=== PATIENT | male | born 1970 | race Caucasian/White ===

== ENCOUNTER → 2020-02-18 | Day surgery (SDC) | payer BC ==
[~2020-02-18] MED LIST: B&O 60MG R/S 60 MG SUPP PR ONE; CEFTRIAXONE SOD 1 GM/NS 50 ML 50 ML IV ONE; DEXAMETHASONE SOD PHOS INJ 4 MG/ML VIAL ONE; FENTANYL CITRATE/PF 100MCG/2 ML INJ ONE; FLOMAX0.4 MG PO; GLYCOPYRROLATE INJ 0.2 MG/ML VIAL ONE; IOPAMIDOL 300MG/ML 50ML INFUS..BTL IV ONE; LIDOCAINE HCL 2% LOCAL INJ 5 ML SDV VIAL INJ ONE; MIDAZOLAM HCL 2 MG/2 ML VIAL ONE; NEOSTIGMINE 1 MG/ML 10ML VIAL ONE; ONDANSETRON HCL INJ 2MG/ML 2ML 2 MG/ML VIAL ONE; PROPOFOL IV EMULSION 10 MG/ML 20 ML VIAL ONE; ROCURONIUM BROMIDE 10 MG/ML 5ML VIAL IV ONE; SEVOFLURANE INHAL SOLN 250 ML PEN BTL ONE
[2020-02-18 08:50] VITALS: BP 132/85
--- NOTE | 2020-02-20 18:16 | Operative Report ---
DATE OF PROCEDURE: 02/18/2020 SURGEON: Magno Perez MD PREOPERATIVE DIAGNOSES: 1. Right ureterolithiasis. 2. Right hydronephrosis due to stone. 3. Hematuria. 4. Urinary tract infections. POSTOPERATIVE DIAGNOSES: 1. Right ureterolithiasis. 2. Right hydronephrosis due to stone. 3. Hematuria. 4. Urinary tract infections. OPERATIONS PERFORMED: 1. Cystourethroscopy with bilateral ureteral catheterization and retrograde ureteropyelography (separate performed for the hematuria and urinary tract infections). 2. Interpretation of retrograde ureteropyelography. 3. Supervision of fluoroscopy, no radiologist present. 4. Right ureteroscopy with stone manipulation and extraction (separate procedure performed for the right ureterolithiasis). 5. Radiological services with supervision and interpretation of ureteroscopy. 6. Cystourethroscopy with insertion of right indwelling ureteral stent (separate procedure performed to relieve the hydronephrosis). ANESTHESIA: General. COMPLICATIONS: None. CLINICAL SUMMARY: Haris Medel is a 49-year-old man with the above preoperative diagnoses. He was brought for the above procedures. He is aware of the risks of bleeding, infection, injury to adjacent structures, need for additional procedures, and elected to proceed. These procedures were done during the COVID-19 emergency due to the fact that the patient has an obstructed right kidney, waiting a couple of months to do this procedure could result in damage to the kidney and therefore, we are doing this procedure to save organ function. OPERATIVE PROCEDURE IN DETAIL: Informed consent was verified. Haris Medel was properly identified, taken to the operating room, and placed on the cystoscopy table in supine position. Anesthesia was uneventfully begun. The patient was then carefully gently repositioned in the dorsal lithotomy position with all pressure points well padded. His genitalia were prepared and draped in usual sterile fashion. The cystoscope sheath with a visual obturator in place was atraumatically inserted into the patient's urethra, it was guided down the unremarkable distal urethra through the normal sphincteric region through the prostate bed, which was significant for very minimal BPH. We entered the patient's bladder. Panendoscopy revealed no suspicious mucosal lesions, no tumors, no stones, no diverticula. Left ureteral orifice was unremarkable. The right ureteral orifice had erythema around it, consistent with an irritative process. A ureteral catheter was used to cannulate the left ureter and retrograde pyelograms were performed, was inserted the right ureter and retrograde ureteropyelograms were performed. A guidewire was then placed into the right ureter and guided to the level of the patient's kidney. The rigid ureteroscope was inserted alongside the guidewire up into the right ureter. We identified the stone. The stone had lots of sharp edges around it and was lodged. We gently dislodged it. We then utilized a basket to atraumatically extracted them with cystoscopic fluoroscopic. With cystoscopic fluoroscopic guidance, the right-sided indwelling ureteral stent was then placed, it was coiled in the patient's kidney as well as the patient's bladder. The retaining suture was left long, so that it may be urinated out into the urethra and allowed for easy retrieval with cystoscopy in the office. Interpretation of retrograde ureteropyelography. Contrast was instilled in retrograde fashion bilaterally. The left side was unremarkable. There were no tumors, no stones, no diverticula. Unobstructed drainage was observed fluoroscopically. Right hand side exhibited hydroureteronephrosis down the level of the patient's stone. The stent was in good position, coiled the patient's kidney as well the patient's bladder at the end of the case. The patient's bladder was drained. Cystoscope was withdrawn. Belladonna and opium suppository were placed, revealing a 25 g prostate, smooth, nonfluctuant without any nodules. The patient was then uneventfully reversed from anesthesia and taken to recovery room in stable condition. There were no complications to the procedure. He tolerated the procedure well. PLANS: Plans will be to return the patient to the office in 3 to 4 weeks to performed cystoscopy and removal of the stents. Magno Perez MD [facility]/MOD[facility] /[id number]
== END | disposition home or self-care (01) ==
LOC: OR 05:24
PROVIDERS: ATTEND Urology
DX: N13.2 Hydronephrosis with renal and ureteral calculous obstruction (principal); N39.0 Urinary tract infection, site not specified; N40.0 Benign prostatic hyperplasia without lower urinary tract symptoms; G47.33 Obstructive sleep apnea (adult) (pediatric); M19.90 Unspecified osteoarthritis, unspecified site; R00.1 Bradycardia, unspecified; Z68.33 Body mass index [BMI] 33.0-33.9, adult
CPT/HCPCS: 52332; 52351; 74420; 88300; 93005; C1758; C1769; C2617; J0696; J1100; J2001; J2250; J2405; J2704; J2710; J3010; Q9967

== ENCOUNTER → 2024-06-11 | Day surgery (SDC) | payer BC ==
[~2024-06-11] MED LIST changes: -B&O 60MG R/S 60 MG SUPP PR ONE; -CEFTRIAXONE SOD 1 GM/NS 50 ML 50 ML IV ONE; +CRESTOR40 MG PO; +CYMBALTA30 MG PO; -DEXAMETHASONE SOD PHOS INJ 4 MG/ML VIAL ONE; +EPINEPHRINE HCL 1:1000 1ML 1 MG/ML AMP ONE; -FENTANYL CITRATE/PF 100MCG/2 ML INJ ONE; -GLYCOPYRROLATE INJ 0.2 MG/ML VIAL ONE; -IOPAMIDOL 300MG/ML 50ML INFUS..BTL IV ONE; +METFORMIN HCL500 M2 PO; +MULTI-VITAMIN1 EACH PO; -NEOSTIGMINE 1 MG/ML 10ML VIAL ONE; -ONDANSETRON HCL INJ 2MG/ML 2ML 2 MG/ML VIAL ONE; +PLAQUENIL200 MG PO; -ROCURONIUM BROMIDE 10 MG/ML 5ML VIAL IV ONE; -SEVOFLURANE INHAL SOLN 250 ML PEN BTL ONE; +TRIAMTERENE-HCTZ1 EA PO; +VITAMIN B121000 MCG PO; +[UNRECOGNIZED DRUG - OTHER] PO
[2024-06-11] MEDS: LACTATED RINGER'S 1,000 ML ONE (12:43)
[2024-06-11 14:30] VITALS: BP 120/71; PULSE 72; RESP 16; O2SAT 98
== END | disposition home or self-care (01) ==
LOC: OR 11:57
PROVIDERS: ATTEND Internal Medicine Gastroenterology
DX: Z12.11 Encounter for screening for malignant neoplasm of colon (principal); D12.7 Benign neoplasm of rectosigmoid junction; K64.8 Other hemorrhoids; G47.33 Obstructive sleep apnea (adult) (pediatric); I10 Essential (primary) hypertension; E78.5 Hyperlipidemia, unspecified; E11.9 Type 2 diabetes mellitus without complications; M06.9 Rheumatoid arthritis, unspecified; Z88.6 Allergy status to analgesic agent; Z01.810 Encounter for preprocedural cardiovascular examination; Z79.84 Long term (current) use of oral hypoglycemic drugs; Z79.899 Other long term (current) drug therapy; Z68.33 Body mass index [BMI] 33.0-33.9, adult
CPT/HCPCS: 45385; 93005; J0171; J2001; J2250

== ENCOUNTER → 2025-01-03 | Day surgery (SDC) | payer BC ==
[~2025-01-03] MED LIST changes: +ACETAMINOPHEN 1000 MG/100 ML 100 ML IV ONE; +ACETAMINOPHEN 1000 MG/100 ML IV PRN; +ASPIRIN 325 MG TAB PO SCH; +ASPIRIN81 MG PO; +CELECOXIB 100 MG CAP PO SCH; +DEXMEDETOMIDINE HCL 2 ML ONE; +DIPHENHYDRAMINE HCL INJ 50 MG/ML VIAL IV PRN; +DOCUSATE SODIUM 100 MG CAP PO PRN; -EPINEPHRINE HCL 1:1000 1ML 1 MG/ML AMP ONE; +FAMOTIDINE 20 MG/2 ML VIAL IV ONE; +FENTANYL CITRATE/PF 100MCG/2 ML INJ ONE; +GLIPIZIDE ER5 MG PO; +HYDROCODONE/APAP 5MG-325MG TAB PO PRN; +HYDROCODONE/APAP 7.5MG-325MG 1 EA TAB PO PRN; -MIDAZOLAM HCL 2 MG/2 ML VIAL ONE; +ONDANSETRON HCL INJ 2MG/ML 2ML 2 MG/ML VIAL IV PRN; +ONDANSETRON HCL INJ 2MG/ML 2ML 2 MG/ML VIAL ONE; +ROCURONIUM BROMIDE 1 ML IV ONE; +ROPIVACAINE/EPI/CLONIDINE/KET 50 ML SYRINGE INJ ONE; +SEVOFLURANE INHAL SOLN 250 ML PEN BTL ONE; +SODIUM CHLORIDE 0.9% 100 ML ONE; +SODIUM CHLORIDE 0.9% 1000ML 1,000 ML IV SCH; +SUCCINYLCHOLINE CHLORIDE 20 MG/ML 10ML VIAL ONE; +SUGAMMADEX SODIUM 200 MG/2 ML VIAL IV ONE; +ZESTRIL10 MG PO
[2025-01-03] MEDS: GABAPENTIN 300 MG CAP ONE (06:56)
[2025-01-03] MEDS: CEFAZOLIN SODIUM 2 GM ONE (06:56)
[2025-01-03] MEDS: CELECOXIB 200 MG CAP ONE (06:56)
[2025-01-03] MEDS: DEXAMETHASONE SOD PHOS 10 MG/1 ML VIAL ONE (06:57)
[2025-01-03] MEDS: LACTATED RINGER'S 1,000 ML ONE (06:57)
[2025-01-03] MEDS: HYDROMORPHONE 1MG/1ML INJ ONE (09:59)
[2025-01-03 11:15] VITALS: BP 126/81; PULSE 82; RESP 18; O2SAT 98
== END | disposition home health service (06) ==
LOC: OR 05:47
PROVIDERS: ATTEND Specialist
DX: M16.12 Unilateral primary osteoarthritis, left hip (principal); G47.33 Obstructive sleep apnea (adult) (pediatric); Z71.3 Dietary counseling and surveillance; Z71.82 Exercise counseling; E11.9 Type 2 diabetes mellitus without complications; I10 Essential (primary) hypertension; E78.5 Hyperlipidemia, unspecified; Z88.6 Allergy status to analgesic agent; Z01.810 Encounter for preprocedural cardiovascular examination; Z01.812 Encounter for preprocedural laboratory examination; Z79.82 Long term (current) use of aspirin; Z79.84 Long term (current) use of oral hypoglycemic drugs; Z79.899 Other long term (current) drug therapy; Z68.32 Body mass index [BMI] 32.0-32.9, adult
CPT/HCPCS: 27130; 72170; 86850; 86900; 93005; 97110; 97116; 97161; C1713 ×2; C1776 ×3; J0131; J0330; J1100; J1171; J2003; J2405; J2704; J3010; J7050; J7121